=== PATIENT | female | born 1995 | race Asian ===

== ENCOUNTER 2018-08-15 09:28 | Emergency (ER) | payer BC ==
[2018-08-15] MEDS: TETRACAINE 0.5% 4 ML OPH RIGHT EYE (10:00)
[2018-08-15] MEDS: OPHTHALMIC IRRIG SOLUTION 120 ML RIGHT EYE (10:05)
[2018-08-15] MEDS: FLUORESCEIN STRIP RIGHT EYE (10:05)
== END 2018-08-15 12:20 | disposition home or self-care (01) ==
LOC: FTE 09:28
DX: H57.12 Ocular pain, left eye (principal)
CPT/HCPCS: 99283